=== PATIENT | male | born 1965 | race Caucasian/White ===

== ENCOUNTER 2017-12-28 18:46 | Emergency (ER) | payer OTHER ==
[~2017-12-28] VITALS: Ht 185.4 cm; Wt 94.5 kg
[~2017-12-28 18:46] MED LIST: BENADRYL50 MG PO; IBUPROFEN200 M1 PO; KEFLEX500 MG PO; NOHOMEMEDS; PREDNISONE10 MG PO; PREDNISONE20 MG PO
[2017-12-28] MEDS ORDERED: MEDROL DOSEPAK4 MG PO (22:38)
[2017-12-28] MEDS ORDERED: SKELAXIN800 MG PO (22:38)
[2017-12-28 23:00] VITALS: BP 144/86
== END 2017-12-28 23:00 | disposition home or self-care (01) ==
LOC: EME 18:46
DX: M54.41 Lumbago with sciatica, right side (principal); G89.29 Other chronic pain; J45.909 Unspecified asthma, uncomplicated; F41.9 Anxiety disorder, unspecified; F17.200 Nicotine dependence, unspecified, uncomplicated; Z90.49 Acquired absence of other specified parts of digestive tract
CPT/HCPCS: 73552; 93971; 99281; 99284; J1885; J7512